=== PATIENT | female | born 1975 | race Caucasian/White ===

== ENCOUNTER → 2016-12-03 | Emergency (ER) | payer OTHER ==
[~2016-12-03] VITALS: Ht 152.4 cm; Wt 77.0 kg
[~2016-12-03] MED LIST: HYDROmorphone 1 MG/ML (DILAUDID) SYRINGE IV ONE; KETOROLAC 30 MG/ML (TORADOL) 1 ML VIAL IV ONE; ONDANSETRON 4 MG (ZOFRAN) ORAL DISSOLVE TAB PO ONE; ORPHENADRINE 60 MG/2 ML (NORFLEX) AMP IV ONE
[2016-12-03] MEDS: SODIUM CHLORIDE FLUSH 10 ML SYR IV PRN ×2 (08:39→10:26)
--- NOTE | 2016-12-03 08:49 | NUR ---
Pt went to radiology, not CT
--- NOTE | 2016-12-03 08:53 | NUR ---
This nurse went to get consent to bill insurance and to treat, pt states she would rather have me sign as she is in pain and the meds have made her "woozy". This nurse signed paperwork along with Marcelino Arora RN
[2016-12-03 11:17] VITALS: BP 109/45
== END | disposition home or self-care (01) ==
LOC: EDUNIT# 07:52 → ED 07:54
DX: M51.27 Other intervertebral disc displacement, lumbosacral region (principal); M54.5 Low back pain
CPT/HCPCS: 51701; 72100; 72131; 96374; 96375; 99284; J1170; J1885; J2360; 99283

== ENCOUNTER → 2016-12-03 | Outpatient (CLI) | payer OTHER | LOC: EMS 07:43 | PROVIDERS: ATTEND Family Medicine | DX: M54.5 Low back pain (principal) ==